=== PATIENT | female | born 1985 ===

== ENCOUNTER 2017-08-07 13:48 | Outpatient (CLI) | payer OTHER ==
--- NOTE | 2017-08-07 15:25 | Ultrasound Report ---
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 Findings: Right lobe measures 4.3 x 1.8 x 1.6 cm. Uniform echogenicity with normal color flow. There is hypoechoic nodule noted at the right breast measuring 0.5 or 0.5 and 0.7 cm. No internal color flow is noted. Left lobe measures 3.5 x 1.4 x 1.1 cm. Uniform echogenicity with normal color flow. There is hypoechoic nodule noted measuring 1.1 x 0.7 x 0.7 cm in no definite color flow was identified. Isthmus measures 0.5 cm. No mass. Impression: Hypoechoic nodules right and left lobe of thyroid gland
== END 2017-08-07 13:49 | disposition home or self-care (01) ==
LOC: SPVWC 13:48
PROVIDERS: ATTEND Family Medicine
DX: E06.3 Autoimmune thyroiditis (principal); E04.2 Nontoxic multinodular goiter
CPT/HCPCS: 76536